=== PATIENT | female | born 1990 | race African-American/Black ===

== ENCOUNTER 2017-06-13 15:38 | Observation (INO) | payer MEDICAID ==
[~2017-06-13] VITALS: Ht 165.1 cm; Wt 103.0 kg
[2017-06-13 16:55] LABS: CLARITY URINE CLEAR (CLEAR); COLOR URINE YELLOW (YELLOW); KETONES URINE TRACE (NEGATIVE); LEUKOCYTE ESTERASE URINE 2+ (NEGATIVE); NITRITE URINE NEGATIVE (NEGATIVE); OCCULT BLOOD URINE NEGATIVE (NEGATIVE); PH URINE 7.5 (4.5-8.0); PROTEIN URINE NEGATIVE (NEGATIVE); SPECIFIC GRAVITY URINE 1.009 (1.005-1.030)
== END 2017-06-13 18:15 | disposition home or self-care (01) ==
LOC: L&D 15:38
PROVIDERS: ADMIT Specialist; ATTEND Specialist
DX: O26.892 Other specified pregnancy related conditions, second trimester (principal); R10.30 Lower abdominal pain, unspecified; M54.5 Low back pain; Z3A.24 24 weeks gestation of pregnancy
CPT/HCPCS: 81001; G0378

== ENCOUNTER 2018-01-30 18:00 | Emergency (ER) | payer MEDICAID, OTHER ==
[~2018-01-30] VITALS: Ht 165.1 cm; Wt 105.0 kg
[2018-01-30 18:17] VITALS: BP 140/90
== END 2018-01-30 19:45 | disposition home or self-care (01) ==
LOC: ER 18:00
DX: R07.89 Other chest pain (principal); R03.0 Elevated blood-pressure reading, without diagnosis of hypertension; Z91.013 Allergy to seafood
CPT/HCPCS: 71045; 81025; 93005; 99284